=== PATIENT | female | born 1960 | race African-American/Black ===

== ENCOUNTER 2020-05-16 11:26 | Emergency (ER) | payer OTHER ==
[~2020-05-16] VITALS: Ht 180.3 cm; Wt 119.3 kg
[2020-05-16 11:32] VITALS: BP 188/108
[2020-05-16] MEDS ORDERED: GABAPENTIN 300 MG CAP PO ONE (13:15)
[2020-05-16] MEDS ORDERED: HYDROcodone-ACET 10/325MG TAB PO ONE (13:15)
== END 2020-05-16 13:39 | disposition home or self-care (01) ==
LOC: ER 11:26
DX: Z76.0 Encounter for issue of repeat prescription (principal); M54.5 Low back pain; G89.29 Other chronic pain; I10 Essential (primary) hypertension; K21.9 Gastro-esophageal reflux disease without esophagitis; J44.9 Chronic obstructive pulmonary disease, unspecified

== ENCOUNTER 2020-10-02 09:56 | Emergency (ER) | payer OTHER ==
[~2020-10-02] VITALS: Ht 180.3 cm; Wt 122.5 kg
[2020-10-02 10:26] VITALS: BP 156/83
[2020-10-02] MEDS ORDERED: HYDROcodone-ACET 10/325MG TAB PO ONE (10:45)
[2020-10-02] MEDS ORDERED: GABAPENTIN 300 MG CAP PO ONE ×2 (10:45→11:00)
[2020-10-02] MEDS ORDERED: METOPROLOL TARTRATE 50 MG TAB PO ONE (11:00)
== END 2020-10-02 11:08 | disposition home or self-care (01) ==
LOC: ER 09:56
DX: I10 Essential (primary) hypertension (principal); Z76.0 Encounter for issue of repeat prescription; G89.29 Other chronic pain; M54.5 Low back pain; J44.9 Chronic obstructive pulmonary disease, unspecified; K21.9 Gastro-esophageal reflux disease without esophagitis